=== PATIENT | male | born 1980 | race Two or more races ===

== ENCOUNTER 2022-10-13 20:46 | Emergency (ER) | payer MEDICAID ==
[~2022-10-13] VITALS: Ht 177.8 cm; Wt 172.4 kg
[2022-10-13 21:30] VITALS: BP 173/97
[2022-10-14] MEDS ORDERED: IBUP800T27 PO (01:30)
[2022-10-14] MEDS ORDERED: KETOROLAC TROMETH 60MG/2ML VIAL IM ONE (01:30)
[2022-10-14] MEDS ORDERED: CYCL-837 PO (01:30)
== END 2022-10-14 01:45 | disposition home or self-care (01) ==
LOC: ER 20:50
DX: M54.42 Lumbago with sciatica, left side (principal); F12.10 Cannabis abuse, uncomplicated; M79.605 Pain in left leg
CPT/HCPCS: 96372; 99283; J1885